=== PATIENT | male | born 1950 | race Caucasian/White ===

== ENCOUNTER → 2016-10-12 | Outpatient (CLI) | payer OTHER, MEDICARE ==
[~2016-10-12] MED LIST: AMBIEN5 M1 PO; GABAPENTIN100 MG; LAMICTAL200 M1 PO; LEVEMIR100 U/M1 SQ; LORTAB 5/3251 TAB PO; METFORMIN HYD1000 M1 PO; NOVOLOG 100U100 U/ML SQ; PRILOSEC 20MG20 MG PO; SYNTHROID0.075 MG PO
== END ==
LOC: LAB 16:41
DX: E72.29 Other disorders of urea cycle metabolism (principal)

== ENCOUNTER → 2016-12-15 | Outpatient (CLI) | payer OTHER, MEDICARE | LOC: LAB 16:01 | DX: E11.9 Type 2 diabetes mellitus without complications (principal); K74.69 Other cirrhosis of liver ==

== ENCOUNTER 2017-01-05 19:21 | Emergency (ER) | payer OTHER, MEDICARE ==
[2017-01-05] MEDS ORDERED: LEVEMIR100 U/M1 SQ (19:39)
[2017-01-05] MEDS ORDERED: NOVOLOG 100U100 U/ML SQ (19:39)
[2017-01-05] MEDS ORDERED: METFORMIN HYD1000 M1 PO (19:40)
[2017-01-05] MEDS ORDERED: LAMICTAL200 M1 PO (19:41)
[2017-01-05] MEDS ORDERED: AMBIEN5 M1 PO (19:41)
[2017-01-05] MEDS ORDERED: GABAPENTIN100 MG (19:43)
[2017-01-05] MEDS ORDERED: SYNTHROID0.075 MG PO (19:43)
[2017-01-05] MEDS ORDERED: LORTAB 5/3251 TAB PO (19:43)
[2017-01-05] MEDS ORDERED: PRILOSEC 20MG20 MG PO (19:44)
== END 2017-01-05 21:21 | disposition home or self-care (01) ==
LOC: ED 19:21
DX: E11.65 Type 2 diabetes mellitus with hyperglycemia (principal); Z79.4 Long term (current) use of insulin
CPT/HCPCS: J7030

== ENCOUNTER → 2017-03-09 | Outpatient (CLI) | payer OTHER, MEDICARE ==
[2017-01-05 21:19] VITALS: BP 119/74
== END ==
LOC: LAB 14:48
DX: R10.32 Left lower quadrant pain (principal)

== ENCOUNTER → 2017-03-10 | Outpatient (CLI) | payer MEDICARE ==
[2017-01-05 21:19] VITALS: BP 119/74
== END ==
LOC: RAD 07:00
DX: R19.04 Left lower quadrant abdominal swelling, mass and lump (principal); R10.32 Left lower quadrant pain

== ENCOUNTER → 2017-05-16 | Outpatient (CLI) | payer MEDICARE ==
[2017-01-05 21:19] VITALS: BP 119/74
== END ==
LOC: LAB 14:58
DX: K74.60 Unspecified cirrhosis of liver (principal)

== ENCOUNTER → 2017-08-01 | Outpatient (CLI) | payer OTHER ==
[2017-07-06 19:24] VITALS: BP 147/74
[~2017-08-01] MED LIST changes: +LACTULOSE SYRUP1 ML PO; -SYNTHROID0.075 MG PO; +SYNTHROID0.15 MG PO; +WELLBUTRIN SR150 M3 PO
[2017-08-01 10:56] LABS: BASO # 0.1 (0.02-0.10); EOS # 0.2 (0.04-0.40); HEMATOCRIT 41.7 % (42.0-52.0); HEMOGLOBIN 14.1 g/dL (13.5-18.0); LYMPH# 1.7 (1.50-4.00); MEAN CELL VOLUME 90 fl (78-100); MEAN CORPUSCULAR HEMOGLOBIN 31 pg (27-31); MEAN CORPUSCULAR HGB CONC 34 g/dL (33-37); MEAN PLATELET VOLUME 10.4 fl (7.4-10.4); MONO # 0.6 (0.20-0.80); PLATELET COUNT 98 K/mm3 (130-400); RED BLOOD COUNT 4.62 M/mm3 (4.20-5.60); RED CELL DISTRIBUTION WIDTH 13.9 % (11.5-14.5); WHITE BLOOD COUNT 7.5 K/mm3 (4.8-10.8)
[2017-08-01 11:19] LABS: ALBUMIN 3.6 g/dL (3.5-5.0); BUN/CREATININE RATIO 16.9 (6.0-26.0); CALCIUM 9.5 mg/dL (8.4-10.2); POTASSIUM 4.2 mmol/L (3.6-5.0); TOTAL PROTEIN 7.4 g/dL (6.3-8.2)
[2017-08-01 12:00] LABS: ERYTHROCYTE SEDIMENTATION RATE 23 mm/hr (0-20)
[2017-08-01 16:40] LABS: URINE APPEARANCE CLEAR; URINE BILIRUBIN NEGATIVE (NEGATIVE); URINE BLOOD NEGATIVE (NEGATIVE); URINE COLOR YELLOW; URINE GLUCOSE 50 mg/dL mg/dL (NEGATIVE); URINE KETONE NEGATIVE (NEGATIVE); URINE LEUKOCYTE ESTERASE NEGATIVE (NEGATIVE); URINE MUCUS PRESENT (NOT PRESENT); URINE NITRATE NEGATIVE (NEGATIVE); URINE PROTEIN(semi-quant) TRACE mg/dL (NEGATIVE); URINE UROBILINOGEN NORMAL (NORMAL); URINE WBC 0-1 /hpf (0-3)
[2017-08-01 23:13] LABS: TESTOSTERONE 369 ng/dL (221-716)
== END ==
LOC: RAD 10:33
PROVIDERS: Internal Medicine
DX: M19.042 Primary osteoarthritis, left hand (principal); R20.2 Paresthesia of skin; E11.9 Type 2 diabetes mellitus without complications; N52.9 Male erectile dysfunction, unspecified; K74.69 Other cirrhosis of liver; E03.9 Hypothyroidism, unspecified; G93.40 Encephalopathy, unspecified

== ENCOUNTER → 2017-09-28 | Outpatient (CLI) | payer OTHER ==
[2017-07-06 19:24] VITALS: BP 147/74
== END ==
LOC: LAB 09:52 → RAD 14:16
DX: Z01.812 Encounter for preprocedural laboratory examination (principal); Z86.14 Personal history of Methicillin resistant Staphylococcus aureus infection

== ENCOUNTER → 2017-11-15 | Outpatient (CLI) | payer MEDICARE ==
[2017-07-06 19:24] VITALS: BP 147/74
[2017-11-15 15:35] LABS: EOS # 0.1 (0.04-0.40); EOS % 1.7 % (0.0-4.0); HEMATOCRIT 37.5 % (42.0-52.0); HEMOGLOBIN 12.3 g/dL (13.5-18.0); LYMPH# 1.3 (1.50-4.00); MEAN CELL VOLUME 92 fl (78-100); MEAN CORPUSCULAR HEMOGLOBIN 30 pg (27-31); MEAN CORPUSCULAR HGB CONC 33 g/dL (33-37); MEAN PLATELET VOLUME 10.7 fl (7.4-10.4); MONO # 0.4 (0.20-0.80); NEU # 3.5 (1.40-6.50); PLATELET COUNT 86 K/mm3 (130-400); RED BLOOD COUNT 4.07 M/mm3 (4.20-5.60); RED CELL DISTRIBUTION WIDTH 14.5 % (11.5-14.5); WHITE BLOOD COUNT 5.3 K/mm3 (4.8-10.8)
[2017-11-15 15:44] LABS: ALBUMIN 3.5 g/dL (3.5-5.0); BUN/CREATININE RATIO 7.5 (6.0-26.0); CALCIUM 9.1 mg/dL (8.4-10.2); POTASSIUM 4.5 mmol/L (3.6-5.0); TOTAL BILIRUBIN 0.4 mg/dL (0.2-1.3); TOTAL PROTEIN 7.1 g/dL (6.3-8.2)
[2017-11-15 15:46] LABS: PROTHROMBIN TIME 11.2 SECONDS (9.0-12.0)
== END ==
LOC: LAB 14:52
PROVIDERS: Physician Assistant
DX: K74.60 Unspecified cirrhosis of liver (principal); K75.81 Nonalcoholic steatohepatitis (NASH); R74.8 Abnormal levels of other serum enzymes

== ENCOUNTER → 2017-12-05 | Outpatient (CLI) | payer OTHER ==
[2017-07-06 19:24] VITALS: BP 147/74
== END ==
LOC: LAB 15:06
DX: E11.9 Type 2 diabetes mellitus without complications (principal); Z88.5 Allergy status to narcotic agent

== ENCOUNTER → 2017-12-06 | Outpatient (CLI) | payer MEDICARE ==
[2017-07-06 19:24] VITALS: BP 147/74
== END ==
LOC: RAD 08:14
DX: K76.89 Other specified diseases of liver (principal); R74.8 Abnormal levels of other serum enzymes; Z90.49 Acquired absence of other specified parts of digestive tract

== ENCOUNTER 2017-12-20 14:00 | Outpatient (RCR) | payer OTHER ==
[2017-07-06 19:24] VITALS: BP 147/74
[2018-01-21] MEDS ORDERED: NOVOLOG 100U100 U/ML SQ (20:30)
[2018-01-21] MEDS ORDERED: LEVSIN-SL0.125 MG SL (21:22)
[2018-01-23] MEDS ORDERED: LATUDA40 MG PO (17:13)
[2018-01-23] MEDS ORDERED: FLAGYL500 M1 PO (19:20)
[2018-01-23] MEDS ORDERED: PREDNISONE20 M1 PO (19:20)
[2018-01-23] MEDS ORDERED: CIPRO500 M1 PO (19:20)
[2018-01-23] MEDS ORDERED: NORCO 325 MG-51 TA1 PO (21:53)
== END 2018-02-22 | disposition home or self-care (01) ==
LOC: OT
DX: Z47.89 Encounter for other orthopedic aftercare (principal)

== ENCOUNTER 2018-01-21 17:52 | Emergency (ER) | payer MEDICARE, OTHER ==
[~2018-01-21] VITALS: Ht 167.6 cm; Wt 96.8 kg
[2018-01-21 18:27] LABS: EOS # 0.1 (0.04-0.40); EOS % 0.9 % (0.0-4.0); HEMATOCRIT 39.4 % (42.0-52.0); LYMPH# 1.2 (1.50-4.00); MEAN CELL VOLUME 92 fl (78-100); MEAN CORPUSCULAR HEMOGLOBIN 30 pg (27-31); MEAN CORPUSCULAR HGB CONC 33 g/dL (33-37); MEAN PLATELET VOLUME 10.7 fl (7.4-10.4); MONO # 0.6 (0.20-0.80); NEU # 5.6 (1.40-6.50); PLATELET COUNT 88 K/mm3 (130-400); RED BLOOD COUNT 4.28 M/mm3 (4.20-5.60); RED CELL DISTRIBUTION WIDTH 13.7 % (11.5-14.5); WHITE BLOOD COUNT 7.6 K/mm3 (4.8-10.8)
[2018-01-21 18:39] LABS: ALBUMIN 3.5 g/dL (3.5-5.0); BUN/CREATININE RATIO 11.9 (6.0-26.0); TOTAL BILIRUBIN 0.7 mg/dL (0.2-1.3); TOTAL PROTEIN 7.2 g/dL (6.3-8.2)
[2018-01-21 19:54] LABS: URINE APPEARANCE CLEAR; URINE BILIRUBIN NEGATIVE (NEGATIVE); URINE BLOOD NEGATIVE (NEGATIVE); URINE COLOR YELLOW; URINE KETONE NEGATIVE (NEGATIVE); URINE LEUKOCYTE ESTERASE NEGATIVE (NEGATIVE); URINE NITRATE NEGATIVE (NEGATIVE); URINE PROTEIN(semi-quant) NEGATIVE (NEGATIVE); URINE UROBILINOGEN NORMAL (NORMAL); URINE WBC 0-1 /hpf (0-3)
[2018-01-21] MEDS ORDERED: NOVOLOG 100U100 U/ML SQ (20:30)
[2018-01-21] MEDS ORDERED: LEVSIN-SL0.125 MG SL (21:22)
[2018-01-21 21:34] LABS: ERYTHROCYTE SEDIMENTATION RATE 15 mm/hr (0-20)
[2018-01-21 21:42] VITALS: BP 123/75
== END 2018-01-21 21:42 | disposition home or self-care (01) ==
LOC: ED 17:52
PROVIDERS: Nurse Practitioner
DX: K51.00 Ulcerative (chronic) pancolitis without complications (principal); R33.9 Retention of urine, unspecified; K74.60 Unspecified cirrhosis of liver; R16.1 Splenomegaly, not elsewhere classified
CPT/HCPCS: J1200; J1815; J1885; J2405; J2930; J7030; Q9967

== ENCOUNTER 2018-01-23 16:51 | Emergency (ER) | payer MEDICARE, OTHER ==
[~2018-01-23] VITALS: Ht 167.6 cm; Wt 96.8 kg
[~2018-01-23 16:51] MED LIST changes: +LEVSIN-SL0.125 MG SL
[2018-01-23] MEDS ORDERED: LATUDA40 MG PO (17:13)
[2018-01-23 17:30] LABS: BASO # 0.1 (0.02-0.10); EOS # 0.1 (0.04-0.40); EOS % 1.4 % (0.0-4.0); HEMATOCRIT 38.2 % (42.0-52.0); HEMOGLOBIN 12.8 g/dL (13.5-18.0); LYMPH# 1.5 (1.50-4.00); MEAN CELL VOLUME 93 fl (78-100); MEAN CORPUSCULAR HEMOGLOBIN 31 pg (27-31); MEAN CORPUSCULAR HGB CONC 34 g/dL (33-37); MEAN PLATELET VOLUME 10.5 fl (7.4-10.4); MONO # 0.6 (0.20-0.80); NEU # 5.5 (1.40-6.50); PLATELET COUNT 75 K/mm3 (130-400); RED BLOOD COUNT 4.13 M/mm3 (4.20-5.60); RED CELL DISTRIBUTION WIDTH 13.4 % (11.5-14.5); WHITE BLOOD COUNT 7.8 K/mm3 (4.8-10.8)
[2018-01-23 17:39] LABS: ALBUMIN 3.5 g/dL (3.5-5.0); BUN/CREATININE RATIO 15.3 (6.0-26.0); CALCIUM 8.8 mg/dL (8.4-10.2); POTASSIUM 3.9 mmol/L (3.6-5.0); TOTAL BILIRUBIN 0.3 mg/dL (0.2-1.3); TOTAL PROTEIN 7.2 g/dL (6.3-8.2)
[2018-01-23] MEDS ORDERED: FLAGYL500 M1 PO (19:20)
[2018-01-23] MEDS ORDERED: PREDNISONE20 M1 PO (19:20)
[2018-01-23] MEDS ORDERED: CIPRO500 M1 PO (19:20)
[2018-01-23] MEDS ORDERED: NORCO 325 MG-51 TA1 PO (21:53)
[2018-01-23 22:47] VITALS: BP 119/77
== END 2018-01-23 22:47 | disposition home or self-care (01) ==
LOC: ED 16:51
PROVIDERS: Nurse Practitioner Primary Care
DX: K52.9 Noninfective gastroenteritis and colitis, unspecified (principal); E11.9 Type 2 diabetes mellitus without complications; Z79.4 Long term (current) use of insulin; I10 Essential (primary) hypertension; K21.9 Gastro-esophageal reflux disease without esophagitis; Z90.49 Acquired absence of other specified parts of digestive tract; K74.60 Unspecified cirrhosis of liver; K72.90 Hepatic failure, unspecified without coma; F32.9 Major depressive disorder, single episode, unspecified; E07.9 Disorder of thyroid, unspecified; Z91.041 Radiographic dye allergy status; R16.1 Splenomegaly, not elsewhere classified
CPT/HCPCS: J0744; J1200; J1885; J2270; J2405; J2930; J3490; J7030; Q9967

== ENCOUNTER → 2018-07-10 | Outpatient (CLI) | payer OTHER ==
[~2018-07-10] MED LIST changes: +CIPRO500 M1 PO; +FLAGYL500 M1 PO; +LATUDA40 MG PO; +NORCO 325 MG-51 TA1 PO; +PREDNISONE20 M1 PO
[2018-07-10 17:22] LABS: EOS # 0.1 (0.04-0.40); EOS % 1.7 % (0.0-4.0); HEMATOCRIT 39.8 % (42.0-52.0); HEMOGLOBIN 13.9 g/dL (13.5-18.0); LYMPH# 1.3 (1.50-4.00); MEAN CELL VOLUME 89 fl (78-100); MEAN CORPUSCULAR HEMOGLOBIN 31 pg (27-31); MEAN CORPUSCULAR HGB CONC 35 g/dL (33-37); MEAN PLATELET VOLUME 11.3 fl (7.4-10.4); MONO # 0.5 (0.20-0.80); NEU # 3.6 (1.40-6.50); PLATELET COUNT 80 K/mm3 (130-400); RED BLOOD COUNT 4.46 M/mm3 (4.20-5.60); RED CELL DISTRIBUTION WIDTH 13.1 % (11.5-14.5); WHITE BLOOD COUNT 5.4 K/mm3 (4.8-10.8)
[2018-07-10 19:27] LABS: ERYTHROCYTE SEDIMENTATION RATE 10 mm/hr (0-20)
[2018-07-10 19:55] LABS: ALBUMIN 3.5 g/dL (3.5-5.0); CALCIUM 8.7 mg/dL (8.4-10.2); POTASSIUM 3.9 mmol/L (3.6-5.0); TOTAL BILIRUBIN 0.6 mg/dL (0.2-1.3); TOTAL PROTEIN 6.8 g/dL (6.3-8.2)
[2018-07-11 15:58] LABS: TESTOSTERONE 363 ng/dL (221-716)
== END ==
LOC: LAB 15:47
PROVIDERS: Internal Medicine
DX: E11.9 Type 2 diabetes mellitus without complications (principal); E03.9 Hypothyroidism, unspecified; E78.5 Hyperlipidemia, unspecified; G93.40 Encephalopathy, unspecified; K74.60 Unspecified cirrhosis of liver

== ENCOUNTER → 2018-10-24 | Outpatient (CLI) | payer OTHER | LOC: LAB 11:14 | DX: E11.9 Type 2 diabetes mellitus without complications (principal) ==

== ENCOUNTER → 2018-11-06 | Outpatient (CLI) | payer SELFPAY | LOC: RAD 16:24 | DX: M47.816 Spondylosis without myelopathy or radiculopathy, lumbar region (principal); M16.0 Bilateral primary osteoarthritis of hip; M53.3 Sacrococcygeal disorders, not elsewhere classified ==

== ENCOUNTER → 2018-12-14 | Outpatient (CLI) | payer OTHER ==
[2018-12-14 13:27] LABS: ALBUMIN 3.5 g/dL (3.5-5.0); CALCIUM 9.1 mg/dL (8.4-10.2); POTASSIUM 4.5 mmol/L (3.6-5.0); TOTAL BILIRUBIN 1.1 mg/dL (0.2-1.3)
[2018-12-14 13:53] LABS: HEMATOCRIT 39.1 % (42.0-52.0); HEMOGLOBIN 12.8 g/dL (13.5-18.0); MEAN CELL VOLUME 91 fl (78-100); MEAN CORPUSCULAR HEMOGLOBIN 30 pg (27-31); MEAN CORPUSCULAR HGB CONC 33 g/dL (33-37); MEAN PLATELET VOLUME 10.3 fl (7.4-10.4); PLATELET COUNT 75 K/mm3 (130-400); RED BLOOD COUNT 4.28 M/mm3 (4.20-5.60); RED CELL DISTRIBUTION WIDTH 13.1 % (11.5-14.5); WHITE BLOOD COUNT 7.6 K/mm3 (4.8-10.8)
[2018-12-14 14:25] LABS: BAND 1 % (0-10); LYMPHOCYTE 8 % (20-51); NEUTROPHILS 89 % (42-75)
[2018-12-14 14:26] LABS: MONOCYTE 2 % (3-10)
[2018-12-14 15:18] LABS: ERYTHROCYTE SEDIMENTATION RATE 20 mm/hr (0-20)
== END ==
LOC: LAB 12:53
PROVIDERS: Internal Medicine
DX: E03.9 Hypothyroidism, unspecified (principal); E11.9 Type 2 diabetes mellitus without complications

== ENCOUNTER 2018-12-22 13:30 | Outpatient (RCR) | payer OTHER | END 2018-12-22 14:00 | LOC: PT 13:30 | DX: M46.1 Sacroiliitis, not elsewhere classified (principal); M76.32 Iliotibial band syndrome, left leg ==

== ENCOUNTER → 2019-03-27 | Outpatient (CLI) | payer OTHER ==
[2019-03-07 10:16] VITALS: BP 109/62
[~2019-03-27] MED LIST changes: +ACETAMINOPHEN-H1 TA1 PO; +DESYREL DIVIDO150 M1 PO; +HYDROXYZINE HCL25 M1 PO; +LATUDA120 MG PO; +NEURONTIN300 M1 PO
[2019-03-27 15:26] LABS: ALBUMIN 3.1 g/dL (3.4-4.8); CALCIUM 8.9 mg/dL (8.3-10.5); POTASSIUM 3.7 mmol/L (3.5-5.1); TOTAL BILIRUBIN 0.9 mg/dL (0.2-1.2); TOTAL PROTEIN 5.9 g/dL (6.2-8.1)
[2019-03-27 16:02] LABS: EOS # 0.1 (0.04-0.40); EOS % 2.7 % (0.0-4.0); HEMATOCRIT 36.3 % (42.0-52.0); HEMOGLOBIN 11.9 g/dL (13.5-18.0); LYMPH# 1.1 (1.50-4.00); MEAN CELL VOLUME 93 fl (78-100); MEAN CORPUSCULAR HEMOGLOBIN 31 pg (27-31); MEAN CORPUSCULAR HGB CONC 33 g/dL (33-37); MEAN PLATELET VOLUME 10.7 fl (7.4-10.4); MONO # 0.5 (0.20-0.80); PLATELET COUNT 67 K/mm3 (130-400); RED BLOOD COUNT 3.89 M/mm3 (4.20-5.60); RED CELL DISTRIBUTION WIDTH 13.6 % (11.5-14.5); WHITE BLOOD COUNT 4.8 K/mm3 (4.8-10.8)
[2019-03-27 16:07] LABS: PROTHROMBIN TIME 11.3 SECONDS (9.0-12.0)
== END ==
LOC: LAB 14:40
PROVIDERS: Physician Assistant
DX: K74.60 Unspecified cirrhosis of liver (principal); R94.5 Abnormal results of liver function studies

== ENCOUNTER 2019-04-06 00:27 | Emergency (ER) | payer OTHER ==
[~2019-04-06] VITALS: Ht 167.6 cm; Wt 96.4 kg
[2019-04-06] MEDS ORDERED: LACTULOSE SYRUP1 ML PO (00:44)
[2019-04-06 01:21] LABS: EOS # 0.1 (0.04-0.40); EOS % 1.7 % (0.0-4.0); HEMATOCRIT 37.2 % (42.0-52.0); HEMOGLOBIN 12.4 g/dL (13.5-18.0); LYMPH# 1.1 (1.50-4.00); MEAN CELL VOLUME 92 fl (78-100); MEAN CORPUSCULAR HEMOGLOBIN 31 pg (27-31); MEAN CORPUSCULAR HGB CONC 33 g/dL (33-37); MONO # 0.4 (0.20-0.80); PLATELET COUNT 106 K/mm3 (130-400); RED BLOOD COUNT 4.03 M/mm3 (4.20-5.60); RED CELL DISTRIBUTION WIDTH 13.6 % (11.5-14.5); WHITE BLOOD COUNT 4.6 K/mm3 (4.8-10.8)
[2019-04-06 01:32] LABS: MEAN PLATELET VOLUME 12.1 fl (7.4-10.4)
[2019-04-06 01:43] LABS: POTASSIUM 3.7 mmol/L (3.5-5.1); SODIUM 139 mmol/L (136-145)
[2019-04-06 01:44] LABS: CALCIUM 8.7 mg/dL (8.3-10.5)
[2019-04-06 01:45] LABS: GLUCOSE 329 mg/dL (75-110); TOTAL PROTEIN 6.4 g/dL (6.2-8.1)
[2019-04-06 01:46] LABS: CARBON DIOXIDE 22 mmol/L (23-31)
[2019-04-06 01:47] LABS: TOTAL BILIRUBIN 0.5 mg/dL (0.2-1.2)
[2019-04-06 01:50] LABS: AST-SGOT 26 U/L (5-34)
[2019-04-06 01:51] LABS: ALT/SGPT 25 U/L (0-55)
[2019-04-06 02:00] LABS: TROPONIN-I < 0.03 ng/mL (<0.030)
[2019-04-06 02:24] LABS: PH-URINE 6.5 (5.0 - 8.0); URINE APPEARANCE CLEAR; URINE COLOR YELLOW; URINE PROTEIN(semi-quant) TRACE mg/dL (NEGATIVE)
[2019-04-06 02:25] LABS: URINE BILIRUBIN NEGATIVE (NEGATIVE); URINE BLOOD NEGATIVE (NEGATIVE); URINE KETONE NEGATIVE (NEGATIVE); URINE LEUKOCYTE ESTERASE NEGATIVE (NEGATIVE); URINE NITRATE NEGATIVE (NEGATIVE); URINE UROBILINOGEN NORMAL (NORMAL); URINE WBC 0-1 /hpf (0-3)
[2019-04-06] MEDS ORDERED: LOPRESSOR 225 MG/TAB PO (02:37)
[2019-04-06] MEDS ORDERED: XARELTO20 MG PO (02:37)
[2019-04-06 02:55] VITALS: BP 122/69
== END 2019-04-06 02:55 | disposition home or self-care (01) ==
LOC: ED 00:27
PROVIDERS: Nurse Practitioner Family
DX: I48.0 Paroxysmal atrial fibrillation (principal); F41.9 Anxiety disorder, unspecified; I10 Essential (primary) hypertension; F31.9 Bipolar disorder, unspecified; E03.9 Hypothyroidism, unspecified; E11.40 Type 2 diabetes mellitus with diabetic neuropathy, unspecified; G47.33 Obstructive sleep apnea (adult) (pediatric); K74.60 Unspecified cirrhosis of liver; Z90.49 Acquired absence of other specified parts of digestive tract; Z79.4 Long term (current) use of insulin
CPT/HCPCS: J2405; J7030

== ENCOUNTER → 2019-04-26 | Outpatient (CLI) | payer OTHER ==
[2019-04-06 02:55] VITALS: BP 122/69
[~2019-04-26] MED LIST changes: +LOPRESSOR 225 MG/TAB PO; +XARELTO20 MG PO
[2019-04-26 16:43] LABS: POTASSIUM 3.8 mmol/L (3.5-5.1)
[2019-04-26 16:44] LABS: CALCIUM 8.5 mg/dL (8.3-10.5)
== END ==
LOC: RAD 04-25 16:00 → VAS 15:21 → LAB 15:21
PROVIDERS: Internal Medicine
DX: I48.91 Unspecified atrial fibrillation (principal); E11.9 Type 2 diabetes mellitus without complications; M54.5 Low back pain

== ENCOUNTER → 2019-05-04 | Outpatient (CLI) | payer OTHER ==
[2019-04-06 02:55] VITALS: BP 122/69
== END ==
LOC: CARDLAB 04-20 13:36 → CARDREHAB 09:18 → CARDLAB 15:08
DX: E11.9 Type 2 diabetes mellitus without complications (principal); I48.91 Unspecified atrial fibrillation
CPT/HCPCS: A9500

== ENCOUNTER 2019-05-28 10:28 | Emergency (ER) | payer MEDICARE ==
[2019-05-28] MEDS ORDERED: LEVOTHYROXINE112 MCG PO (10:37)
[2019-05-28] MEDS ORDERED: NORCO 10-325 T1 EACH PO (12:07)
[2019-05-28 12:40] VITALS: BP 113/64
--- NOTE | 2019-05-29 18:16 | NUR ---
Discussed w/ pt HH scores over the phone via [facility] website, and he states he has no preference and knows nothing about HH and chooses the [facility] w/ the highest score. Dr Patino is notified of Mirella Acosta APRN requesting HH services through the ED and is in agreement. HH F2F order is signed and faxed to [facility] per pt telephone agreement.
== END 2019-05-28 12:13 | disposition home or self-care (01) ==
LOC: ED 10:28
DX: G89.29 Other chronic pain (principal); M54.9 Dorsalgia, unspecified; E11.9 Type 2 diabetes mellitus without complications; I25.10 Atherosclerotic heart disease of native coronary artery without angina pectoris; I10 Essential (primary) hypertension; K74.60 Unspecified cirrhosis of liver; F31.9 Bipolar disorder, unspecified; K21.9 Gastro-esophageal reflux disease without esophagitis; Z90.49 Acquired absence of other specified parts of digestive tract; Z21 Asymptomatic human immunodeficiency virus [HIV] infection status; Z79.4 Long term (current) use of insulin; Z98.890 Other specified postprocedural states; Z79.01 Long term (current) use of anticoagulants
CPT/HCPCS: J1885

== ENCOUNTER → 2019-06-09 | Outpatient (CLI) | payer OTHER ==
[2019-05-28 12:40] VITALS: BP 113/64
[~2019-06-09] MED LIST changes: +LEVOTHYROXINE112 MCG PO; +NORCO 10-325 T1 EACH PO
== END ==
LOC: RAD 11:37
DX: M16.0 Bilateral primary osteoarthritis of hip (principal); W19.XXXA Unspecified fall, initial encounter

== ENCOUNTER 2019-07-07 22:12 | Emergency (ER) | payer OTHER ==
[2019-07-07] MEDS ORDERED: NORCO 10-325 T1 EACH PO (23:18)
[2019-07-08 00:06] VITALS: BP 136/68
== END 2019-07-08 00:20 | disposition home or self-care (01) ==
LOC: ED 22:12
DX: G89.29 Other chronic pain (principal); M54.9 Dorsalgia, unspecified; I48.91 Unspecified atrial fibrillation; E10.9 Type 1 diabetes mellitus without complications; F31.9 Bipolar disorder, unspecified; G47.30 Sleep apnea, unspecified; G62.9 Polyneuropathy, unspecified; Z90.49 Acquired absence of other specified parts of digestive tract; Z98.890 Other specified postprocedural states; Z79.01 Long term (current) use of anticoagulants; W00.0XXA Fall on same level due to ice and snow, initial encounter; Y92.009 Unspecified place in unspecified non-institutional (private) residence as the place of occurrence of the external cause
CPT/HCPCS: J2270

== ENCOUNTER 2019-07-13 13:13 | Observation (INO) | payer OTHER ==
[~2019-07-13] VITALS: Ht 152.4 cm; Wt 97.9 kg
[2019-07-13] MEDS ORDERED: NOVOLOG 100U100 U/ML SQ (13:45)
[2019-07-13] MEDS ORDERED: BACLOFEN5 MG PO (13:46)
[2019-07-13] MEDS ORDERED: CHILDREN'S ASPI81 M1 PO (13:47)
[2019-07-13] MEDS ORDERED: HYDROXYZINE HCL25 M1 PO (13:48)
[2019-07-13] MEDS ORDERED: BENADRYL (13:48)
[2019-07-13 13:56] LABS: EOS # 0.1 (0.04-0.40); EOS % 1.9 % (0.0-4.0); HEMATOCRIT 34.2 % (42.0-52.0); HEMOGLOBIN 10.9 g/dL (13.5-18.0); MEAN CELL VOLUME 95 fl (78-100); MEAN CORPUSCULAR HEMOGLOBIN 30 pg (27-31); MEAN CORPUSCULAR HGB CONC 32 g/dL (33-37); MEAN PLATELET VOLUME 11.1 fl (7.4-10.4); MONO # 0.4 (0.20-0.80); NEU # 2.8 (1.40-6.50); PLATELET COUNT 66 K/mm3 (130-400); RED BLOOD COUNT 3.61 M/mm3 (4.20-5.60); RED CELL DISTRIBUTION WIDTH 13.5 % (11.5-14.5); WHITE BLOOD COUNT 4.3 K/mm3 (4.8-10.8)
[2019-07-13 14:08] LABS: ALBUMIN 3.3 g/dL (3.4-4.8)
[2019-07-13 14:09] LABS: SODIUM 139 mmol/L (136-145)
[2019-07-13 14:10] LABS: CALCIUM 9.1 mg/dL (8.3-10.5)
[2019-07-13 14:11] LABS: GLUCOSE 229 mg/dL (75-110); TOTAL PROTEIN 6.4 g/dL (6.2-8.1)
[2019-07-13 14:12] LABS: CARBON DIOXIDE 24 mmol/L (23-31)
[2019-07-13 14:13] LABS: TOTAL BILIRUBIN 0.5 mg/dL (0.2-1.2)
[2019-07-13 14:14] LABS: ALCOHOL IN-HOUSE < 10 mg/dL (<10)
[2019-07-13 14:16] LABS: AST-SGOT 30 U/L (5-34)
[2019-07-13 14:18] LABS: ALT/SGPT 24 U/L (0-55)
[2019-07-13 14:23] LABS: TROPONIN-I < 0.03 ng/mL (<0.030)
[2019-07-13 16:13] LABS: URINE APPEARANCE CLEAR; URINE COLOR YELLOW; URINE PROTEIN(semi-quant) TRACE mg/dL (NEGATIVE)
[2019-07-13 16:14] LABS: URINE BILIRUBIN NEGATIVE (NEGATIVE); URINE BLOOD NEGATIVE (NEGATIVE); URINE KETONE NEGATIVE (NEGATIVE); URINE LEUKOCYTE ESTERASE NEGATIVE (NEGATIVE); URINE NITRATE NEGATIVE (NEGATIVE); URINE UROBILINOGEN NORMAL (NORMAL); URINE WBC 0-1 /hpf (0-3)
[2019-07-13 22:40] VITALS: BP 123/64
[2019-07-13 23:09] VITALS: BP 123/64
[2019-07-14 02:47] VITALS: BP 96/57
[2019-07-14 06:17] VITALS: BP 93/57
[2019-07-14 08:15] VITALS: BP 119/52
[2019-07-14 11:00] VITALS: BP 103/74
[2019-07-14 15:12] VITALS: BP 90/52
[2019-07-14] MEDS ORDERED: LACTULOSE10 GM/153 PO (18:35)
[2019-07-14 18:53] VITALS: BP 99/62
== END 2019-07-14 20:10 | disposition home health service (06) ==
LOC: ED 13:13 → MED/SURG 22:46
PROVIDERS: Nurse Practitioner Primary Care; ADMIT Family Medicine
DX: R41.0 Disorientation, unspecified (principal); F31.9 Bipolar disorder, unspecified; I48.91 Unspecified atrial fibrillation; K74.60 Unspecified cirrhosis of liver; G89.29 Other chronic pain; M54.5 Low back pain; E11.9 Type 2 diabetes mellitus without complications; Z79.4 Long term (current) use of insulin; E03.9 Hypothyroidism, unspecified; K21.9 Gastro-esophageal reflux disease without esophagitis; Z79.899 Other long term (current) drug therapy; Z90.49 Acquired absence of other specified parts of digestive tract; Z79.82 Long term (current) use of aspirin
CPT/HCPCS: G0378; J1815

== ENCOUNTER 2019-10-13 08:53 | Emergency (ER) | payer OTHER ==
[~2019-10-13 08:53] MED LIST changes: +BACLOFEN5 MG PO; +BENADRYL; +CHILDREN'S ASPI81 M1 PO; +LACTULOSE10 GM/153 PO
[2019-10-13 09:51] LABS: EOS # 0.1 (0.04-0.40); EOS % 1.9 % (0.0-4.0); HEMOGLOBIN 11.5 g/dL (13.5-18.0); LYMPH# 1.3 (1.50-4.00); MEAN CELL VOLUME 86 fl (78-100); MEAN CORPUSCULAR HEMOGLOBIN 28 pg (27-31); MEAN CORPUSCULAR HGB CONC 32 g/dL (33-37); MEAN PLATELET VOLUME 11.5 fl (7.4-10.4); MONO # 0.5 (0.20-0.80); NEU # 3.4 (1.40-6.50); PLATELET COUNT 102 K/mm3 (130-400); RED BLOOD COUNT 4.17 M/mm3 (4.20-5.60); RED CELL DISTRIBUTION WIDTH 14.5 % (11.5-14.5); WHITE BLOOD COUNT 5.4 K/mm3 (4.8-10.8)
[2019-10-13 09:58] LABS: POTASSIUM 4.4 mmol/L (3.5-5.1)
[2019-10-13 09:59] LABS: CALCIUM 8.5 mg/dL (8.3-10.5)
[2019-10-13] MEDS ORDERED: TRAMADOL 50 MG TAB PO (14:24)
[2019-10-13 14:45] VITALS: BP 145/60
== END 2019-10-13 15:02 | disposition home or self-care (01) ==
LOC: ED 08:53
PROVIDERS: Family Medicine
DX: S00.83XA Contusion of other part of head, initial encounter (principal); S00.31XA Abrasion of nose, initial encounter; E11.65 Type 2 diabetes mellitus with hyperglycemia; I48.91 Unspecified atrial fibrillation; F31.9 Bipolar disorder, unspecified; G89.29 Other chronic pain; Z79.01 Long term (current) use of anticoagulants; Z79.4 Long term (current) use of insulin; Z79.82 Long term (current) use of aspirin; W18.30XA Fall on same level, unspecified, initial encounter; Y93.01 Activity, walking, marching and hiking; Y92.009 Unspecified place in unspecified non-institutional (private) residence as the place of occurrence of the external cause
CPT/HCPCS: J1815; J7030

== ENCOUNTER 2019-12-10 13:58 | Emergency (ER) | payer OTHER ==
[~2019-12-10 13:58] MED LIST changes: +TRAMADOL 50 MG TAB PO
[2019-12-10 14:07] VITALS: BP 126/64
[2019-12-10] MEDS ORDERED: METOPROLOL SUCC25 M1 PO (14:25)
[2019-12-10] MEDS ORDERED: OMEPRAZOLE40 MG PO (14:25)
[2019-12-10 14:29] LABS: BASO # 0.1 (0.02-0.10); EOS # 0.2 (0.04-0.40); HEMATOCRIT 36.7 % (42.0-52.0); HEMOGLOBIN 11.6 g/dL (13.5-18.0); LYMPH# 1.8 (1.50-4.00); MEAN CELL VOLUME 89 fl (78-100); MEAN CORPUSCULAR HEMOGLOBIN 28 pg (27-31); MEAN CORPUSCULAR HGB CONC 32 g/dL (33-37); MEAN PLATELET VOLUME 10.7 fl (7.4-10.4); MONO # 0.7 (0.20-0.80); NEU # 5.6 (1.40-6.50); PLATELET COUNT 95 K/mm3 (130-400); RED BLOOD COUNT 4.13 M/mm3 (4.20-5.60); RED CELL DISTRIBUTION WIDTH 15.2 % (11.5-14.5); WHITE BLOOD COUNT 8.3 K/mm3 (4.8-10.8)
[2019-12-10 14:48] LABS: ALBUMIN 2.9 g/dL (3.4-4.8); POTASSIUM 3.7 mmol/L (3.5-5.1)
[2019-12-10 14:49] LABS: CALCIUM 8.5 mg/dL (8.3-10.5)
[2019-12-10 14:51] LABS: TOTAL PROTEIN 6.3 g/dL (6.2-8.1)
[2019-12-10 14:52] LABS: TOTAL BILIRUBIN 1.3 mg/dL (0.2-1.2)
== END 2019-12-10 16:54 | disposition left against medical advice (07) ==
LOC: ED 13:58
PROVIDERS: Nurse Practitioner
DX: R07.89 Other chest pain (principal); G89.18 Other acute postprocedural pain; E11.9 Type 2 diabetes mellitus without complications; I48.91 Unspecified atrial fibrillation; Z79.4 Long term (current) use of insulin; Z79.82 Long term (current) use of aspirin; Z79.01 Long term (current) use of anticoagulants; Z90.89 Acquired absence of other organs; Z86.79 Personal history of other diseases of the circulatory system

== ENCOUNTER → 2020-01-28 | Outpatient (CLI) | payer OTHER ==
[~2020-01-28] MED LIST changes: +METOPROLOL SUCC25 M1 PO; +OMEPRAZOLE40 MG PO
== END ==
LOC: LAB 14:42
DX: J98.8 Other specified respiratory disorders (principal); E11.9 Type 2 diabetes mellitus without complications

== ENCOUNTER → 2020-05-26 | Outpatient (CLI) | payer OTHER ==
[2020-05-26 14:43] LABS: EOS % 0.2 % (0.0-4.0); HEMATOCRIT 38.1 % (42.0-52.0); HEMOGLOBIN 12.3 g/dL (13.5-18.0); LYMPH# 1.3 (1.50-4.00); MEAN CELL VOLUME 89 fl (78-100); MEAN CORPUSCULAR HEMOGLOBIN 29 pg (27-31); MEAN CORPUSCULAR HGB CONC 32 g/dL (33-37); MEAN PLATELET VOLUME 10.5 fl (7.4-10.4); MONO # 0.8 (0.20-0.80); NEU # 7.2 (1.40-6.50); PLATELET COUNT 108 K/mm3 (130-400); RED BLOOD COUNT 4.27 M/mm3 (4.20-5.60); RED CELL DISTRIBUTION WIDTH 14.3 % (11.5-14.5); WHITE BLOOD COUNT 9.4 K/mm3 (4.8-10.8)
[2020-05-26 14:45] LABS: ALBUMIN 3.2 g/dL (3.4-4.8); POTASSIUM 4.4 mmol/L (3.5-5.1)
[2020-05-26 14:46] LABS: CALCIUM 9.1 mg/dL (8.3-10.5)
[2020-05-26 14:48] LABS: TOTAL PROTEIN 6.9 g/dL (6.2-8.1)
[2020-05-26 14:50] LABS: TOTAL BILIRUBIN 0.7 mg/dL (0.2-1.2)
[2020-05-26 15:38] LABS: URINE APPEARANCE CLEAR; URINE BILIRUBIN NEGATIVE (NEGATIVE); URINE BLOOD NEGATIVE (NEGATIVE); URINE COLOR YELLOW; URINE KETONE NEGATIVE (NEGATIVE); URINE LEUKOCYTE ESTERASE NEGATIVE (NEGATIVE); URINE NITRATE NEGATIVE (NEGATIVE); URINE PROTEIN(semi-quant) NEGATIVE (NEGATIVE); URINE UROBILINOGEN NORMAL (NORMAL); URINE WBC 0-1 /hpf (0-3)
[2020-05-26 16:21] LABS: ERYTHROCYTE SEDIMENTATION RATE 9 mm/hr (0-20)
[2020-05-27 00:36] LABS: CREATININE OTHER SOURCE 66 mg/dL (())
== END ==
LOC: LAB 14:13
PROVIDERS: Internal Medicine
DX: Z12.5 Encounter for screening for malignant neoplasm of prostate (principal); E11.9 Type 2 diabetes mellitus without complications; K74.69 Other cirrhosis of liver; E72.29 Other disorders of urea cycle metabolism; E03.9 Hypothyroidism, unspecified

== ENCOUNTER → 2020-08-07 | Outpatient (CLI) | payer OTHER ==
[2020-06-30 14:15] VITALS: BP 101/67
[~2020-08-07] MED LIST changes: +BACLOFEN5 MG; +DESYREL 100MG100 MG PO; +PERCOCET 325 MG1 TA2 PO
== END ==
LOC: LAB 15:24
DX: E11.9 Type 2 diabetes mellitus without complications (principal); K74.69 Other cirrhosis of liver; E72.29 Other disorders of urea cycle metabolism; K90.9 Intestinal malabsorption, unspecified

== ENCOUNTER → 2020-08-15 | Outpatient (CLI) | payer MEDICARE ==
[2020-06-30 14:15] VITALS: BP 101/67
== END ==
LOC: RAD 08:38
DX: K74.60 Unspecified cirrhosis of liver (principal); K75.81 Nonalcoholic steatohepatitis (NASH); R18.8 Other ascites

== ENCOUNTER → 2020-08-18 | Outpatient (CLI) | payer MEDICARE ==
[2020-06-30 14:15] VITALS: BP 101/67
== END ==
LOC: LAB 12:42
DX: R05 Cough (principal); Z20.828 Contact with and (suspected) exposure to other viral communicable diseases

== ENCOUNTER → 2020-08-21 | Day surgery (SDC) | payer MEDICARE ==
[2020-06-30 14:15] VITALS: BP 101/67
== END ==
LOC: MSO 08:08
DX: Z12.11 Encounter for screening for malignant neoplasm of colon (principal); K57.30 Diverticulosis of large intestine without perforation or abscess without bleeding; I85.00 Esophageal varices without bleeding; K76.6 Portal hypertension; K22.2 Esophageal obstruction; K21.9 Gastro-esophageal reflux disease without esophagitis; K75.81 Nonalcoholic steatohepatitis (NASH); E78.00 Pure hypercholesterolemia, unspecified; F41.9 Anxiety disorder, unspecified; F32.9 Major depressive disorder, single episode, unspecified; E66.01 Morbid (severe) obesity due to excess calories; G93.40 Encephalopathy, unspecified; Z90.49 Acquired absence of other specified parts of digestive tract
CPT/HCPCS: 43235; G0121; 00813; J2704; J3010; J7030

== ENCOUNTER → 2020-11-10 | Outpatient (CLI) | payer MEDICARE ==
[2020-06-30 14:15] VITALS: BP 101/67
[2020-11-10 16:43] LABS: BASO # 0.1 (0.02-0.10); EOS # 0.4 (0.04-0.40); HEMATOCRIT 36.6 % (42.0-52.0); LYMPH# 1.2 (1.50-4.00); MEAN CELL VOLUME 94 fl (78-100); MEAN CORPUSCULAR HEMOGLOBIN 31 pg (27-31); MEAN CORPUSCULAR HGB CONC 33 g/dL (33-37); MEAN PLATELET VOLUME 9.5 fl (7.4-10.4); MONO # 0.6 (0.20-0.80); NEU # 4.9 (1.40-6.50); PLATELET COUNT 165 K/mm3 (130-400); RED CELL DISTRIBUTION WIDTH 14.6 % (11.5-14.5); WHITE BLOOD COUNT 7.1 K/mm3 (4.8-10.8)
[2020-11-10 16:58] LABS: ALBUMIN 2.7 g/dL (3.4-4.8); POTASSIUM 4.1 mmol/L (3.5-5.1); PROTHROMBIN TIME 12.4 SECONDS (9.0-12.0)
[2020-11-10 16:59] LABS: CALCIUM 8.4 mg/dL (8.3-10.5)
[2020-11-10 17:00] LABS: TOTAL PROTEIN 6.6 g/dL (6.2-8.1)
[2020-11-10 17:03] LABS: EOS % 5.8 % (0.0-4.0)
== END ==
LOC: LAB 16:30
PROVIDERS: Internal Medicine Gastroenterology
DX: K74.60 Unspecified cirrhosis of liver (principal); K75.81 Nonalcoholic steatohepatitis (NASH); G93.40 Encephalopathy, unspecified; E11.9 Type 2 diabetes mellitus without complications

== ENCOUNTER → 2020-12-18 | Outpatient (CLI) | payer OTHER ==
[2020-06-30 14:15] VITALS: BP 101/67
== END ==
LOC: LAB 14:45
DX: E03.4 Atrophy of thyroid (acquired) (principal); E11.9 Type 2 diabetes mellitus without complications; K90.9 Intestinal malabsorption, unspecified; K74.60 Unspecified cirrhosis of liver; I85.10 Secondary esophageal varices without bleeding; K29.50 Unspecified chronic gastritis without bleeding

== ENCOUNTER → 2021-01-09 | Outpatient (CLI) | payer OTHER ==
[2020-06-30 14:15] VITALS: BP 101/67
== END ==
LOC: LAB 15:45
DX: Z20.822 Contact with and (suspected) exposure to COVID-19 (principal)

== ENCOUNTER → 2021-02-02 | Outpatient (CLI) | payer OTHER ==
[2020-06-30 14:15] VITALS: BP 101/67
== END ==
LOC: LAB 14:05
DX: Z20.822 Contact with and (suspected) exposure to COVID-19 (principal)

== ENCOUNTER → 2021-02-13 | Outpatient (CLI) | payer OTHER ==
[2020-06-30 14:15] VITALS: BP 101/67
[2021-02-13 14:24] LABS: BASO # 0.05 (0.02-0.10); EOS # 0.19 (0.04-0.40); EOS % 3.8 % (0.0-4.0); HEMATOCRIT 33.2 % (42.0-52.0); HEMOGLOBIN 10.9 g/dL (13.5-18.0); LYMPH# 1.03 (1.50-4.00); MEAN CELL VOLUME 93 fl (78-100); MEAN CORPUSCULAR HEMOGLOBIN 31 pg (27-31); MEAN CORPUSCULAR HGB CONC 33 g/dL (33-37); MEAN PLATELET VOLUME 9.8 fl (7.4-10.4); MONO # 0.42 (0.20-0.80); NEU # 3.32 (1.40-6.50); PLATELET COUNT 103 K/mm3 (130-400); RED BLOOD COUNT 3.56 M/mm3 (4.20-5.60); RED CELL DISTRIBUTION WIDTH 14.3 % (11.5-14.5)
[2021-02-13 14:43] LABS: ALBUMIN 2.5 g/dL (3.4-4.8); POTASSIUM 4.5 mmol/L (3.5-5.1)
[2021-02-13 14:44] LABS: PROTHROMBIN TIME 12.6 SECONDS (9.0-12.0)
[2021-02-13 14:46] LABS: TOTAL PROTEIN 6.8 g/dL (6.2-8.1)
[2021-02-13 14:48] LABS: TOTAL BILIRUBIN 1.1 mg/dL (0.2-1.2)
== END ==
LOC: LAB 13:55
PROVIDERS: Physician Assistant
DX: K74.69 Other cirrhosis of liver (principal); K75.81 Nonalcoholic steatohepatitis (NASH); I85.10 Secondary esophageal varices without bleeding

== ENCOUNTER → 2021-02-19 | Outpatient (CLI) | payer OTHER ==
[2020-06-30 14:15] VITALS: BP 101/67
== END ==
LOC: RAD 15:19
DX: M19.011 Primary osteoarthritis, right shoulder (principal)

== ENCOUNTER → 2021-03-24 | Outpatient (CLI) | payer OTHER ==
[2021-03-24 15:06] LABS: BASO # 0.06 (0.02-0.10); EOS # 0.16 (0.04-0.40); HEMATOCRIT 35.5 % (42.0-52.0); HEMOGLOBIN 11.7 g/dL (13.5-18.0); LYMPH# 1.44 (1.50-4.00); MEAN CELL VOLUME 94 fl (78-100); MEAN CORPUSCULAR HEMOGLOBIN 31 pg (27-31); MEAN CORPUSCULAR HGB CONC 33 g/dL (33-37); MEAN PLATELET VOLUME 9.6 fl (7.4-10.4); MONO # 0.61 (0.20-0.80); NEU # 5.66 (1.40-6.50); PLATELET COUNT 88 K/mm3 (130-400); RED BLOOD COUNT 3.78 M/mm3 (4.20-5.60); RED CELL DISTRIBUTION WIDTH 14.2 % (11.5-14.5); WHITE BLOOD COUNT 7.9 K/mm3 (4.8-10.8)
[2021-03-24 15:12] LABS: ALBUMIN 2.8 g/dL (3.4-4.8)
[2021-03-24 15:13] LABS: POTASSIUM 4.3 mmol/L (3.5-5.1)
[2021-03-24 15:14] LABS: CALCIUM 8.2 mg/dL (8.3-10.5)
[2021-03-24 15:15] LABS: TOTAL PROTEIN 7.2 g/dL (6.2-8.1)
[2021-03-24 15:17] LABS: TOTAL BILIRUBIN 1.4 mg/dL (0.2-1.2)
[2021-03-24 15:23] LABS: MAGNESIUM 1.57 mg/dL (1.60-2.60)
== END ==
LOC: LAB 14:50
PROVIDERS: Internal Medicine
DX: F31.9 Bipolar disorder, unspecified (principal); K74.60 Unspecified cirrhosis of liver; E11.9 Type 2 diabetes mellitus without complications; K90.9 Intestinal malabsorption, unspecified

== ENCOUNTER → 2021-04-15 | Outpatient (CLI) | payer OTHER | LOC: RAD 07:13 | DX: K74.69 Other cirrhosis of liver (principal); K75.81 Nonalcoholic steatohepatitis (NASH); I85.10 Secondary esophageal varices without bleeding; Z90.49 Acquired absence of other specified parts of digestive tract ==

== ENCOUNTER → 2021-07-29 | Outpatient (CLI) | payer OTHER | LOC: RAD 10:06 | DX: M25.511 Pain in right shoulder (principal) ==

== ENCOUNTER → 2021-08-11 | Outpatient (CLI) | payer OTHER ==
[2021-08-11 13:03] LABS: ALBUMIN 2.7 g/dL (3.4-4.8); POTASSIUM 4.1 mmol/L (3.5-5.1)
[2021-08-11 13:04] LABS: CALCIUM 8.9 mg/dL (8.3-10.5)
[2021-08-11 13:06] LABS: TOTAL PROTEIN 6.9 g/dL (6.2-8.1)
[2021-08-11 13:15] LABS: BASO # 0.05 K/mm3 (0.02-0.10); EOS # 0.21 K/mm3 (0.04-0.40); EOS % 2.4 % (0.0-4.0); HEMOGLOBIN 12.3 g/dL (13.5-18.0); LYMPH# 1.06 K/mm3 (1.50-4.00); MEAN CELL VOLUME 98 fl (78-100); MEAN CORPUSCULAR HEMOGLOBIN 32 pg (27-31); MEAN CORPUSCULAR HGB CONC 32 g/dL (33-37); MEAN PLATELET VOLUME 10.7 fl (7.4-10.4); MONO # 0.72 K/mm3 (0.20-0.80); NEU # 6.77 K/mm3 (1.40-6.50); PLATELET COUNT 88 K/mm3 (130-400); RED BLOOD COUNT 3.89 M/mm3 (4.20-5.60); WHITE BLOOD COUNT 8.9 K/mm3 (4.8-10.8)
[2021-08-11 14:00] LABS: TOTAL BILIRUBIN 0.9 mg/dL (0.2-1.2)
== END ==
LOC: LAB 12:24
PROVIDERS: Internal Medicine
DX: E11.9 Type 2 diabetes mellitus without complications (principal); I48.91 Unspecified atrial fibrillation; E03.4 Atrophy of thyroid (acquired); K90.9 Intestinal malabsorption, unspecified

== ENCOUNTER → 2021-08-13 | Outpatient (CLI) | payer OTHER ==
[2021-08-13 11:07] LABS: URINE APPEARANCE HAZY; URINE COLOR YELLOW; URINE PROTEIN(semi-quant) NEGATIVE (NEGATIVE)
[2021-08-13 11:08] LABS: URINE BILIRUBIN NEGATIVE (NEGATIVE); URINE BLOOD TRACE (NEGATIVE); URINE KETONE NEGATIVE (NEGATIVE); URINE LEUKOCYTE ESTERASE NEGATIVE (NEGATIVE); URINE NITRATE NEGATIVE (NEGATIVE); URINE UROBILINOGEN NORMAL (NORMAL)
== END ==
LOC: LAB 10:29
PROVIDERS: Internal Medicine
DX: E11.9 Type 2 diabetes mellitus without complications (principal); I48.91 Unspecified atrial fibrillation; E03.4 Atrophy of thyroid (acquired); K90.9 Intestinal malabsorption, unspecified

== ENCOUNTER 2021-09-26 15:33 | Emergency (ER) | payer OTHER ==
[~2021-09-26] VITALS: Ht 167.6 cm; Wt 81.7 kg
[~2021-09-26 15:33] MED LIST changes: -LATUDA120 MG PO
[2021-09-26 16:37] LABS: BASO # 0.05 K/mm3 (0.02-0.10); EOS # 0.09 K/mm3 (0.04-0.40); EOS % 1.5 % (0.0-4.0); HEMATOCRIT 32.6 % (42.0-52.0); HEMOGLOBIN 11.4 g/dL (13.5-18.0); LYMPH# 0.77 K/mm3 (1.50-4.00); MEAN CELL VOLUME 94 fl (78-100); MEAN CORPUSCULAR HEMOGLOBIN 33 pg (27-31); MEAN CORPUSCULAR HGB CONC 35 g/dL (33-37); MEAN PLATELET VOLUME 10.1 fl (7.4-10.4); MONO # 0.57 K/mm3 (0.20-0.80); NEU # 4.55 K/mm3 (1.40-6.50); PLATELET COUNT 96 K/mm3 (130-400); RED BLOOD COUNT 3.48 M/mm3 (4.20-5.60); RED CELL DISTRIBUTION WIDTH 14.2 % (11.5-14.5)
[2021-09-26 16:46] LABS: ALBUMIN 2.3 g/dL (3.4-4.8); POTASSIUM 3.8 mmol/L (3.5-5.1)
[2021-09-26 16:49] LABS: PROTHROMBIN TIME 12.4 SECONDS (9.0-12.0); TOTAL PROTEIN 6.1 g/dL (6.2-8.1)
[2021-09-26 16:50] LABS: TOTAL BILIRUBIN 1.8 mg/dL (0.2-1.2)
[2021-09-26 17:00] LABS: URINE APPEARANCE CLEAR; URINE BILIRUBIN NEGATIVE (NEGATIVE); URINE BLOOD NEGATIVE (NEGATIVE); URINE COLOR AMBER; URINE KETONE NEGATIVE (NEGATIVE); URINE LEUKOCYTE ESTERASE NEGATIVE (NEGATIVE); URINE NITRATE NEGATIVE (NEGATIVE); URINE PROTEIN(semi-quant) NEGATIVE (NEGATIVE); URINE UROBILINOGEN NORMAL (NORMAL); URINE WBC 0-1 /hpf (0-3)
[2021-09-26] MEDS ORDERED: MAGOX 400241.3 MG PO (17:48)
[2021-09-26] MEDS ORDERED: FUROSEMIDE40 MG PO (17:49)
[2021-09-26] MEDS ORDERED: SPIRONOLACTONE100 MG PO (17:49)
[2021-09-26] MEDS ORDERED: VITAMIN D21250 MCG PO (17:50)
[2021-09-26] MEDS ORDERED: VITAMIN D3125 MC1 PO (17:50)
[2021-09-26] MEDS ORDERED: XIFAXAN550 MG PO (17:51)
[2021-09-26 20:05] VITALS: BP 110/68
== END 2021-09-26 20:07 | disposition home or self-care (01) ==
LOC: ED 15:33
PROVIDERS: Family Medicine
DX: K74.60 Unspecified cirrhosis of liver (principal); E11.9 Type 2 diabetes mellitus without complications; F31.9 Bipolar disorder, unspecified; E03.9 Hypothyroidism, unspecified; Z90.49 Acquired absence of other specified parts of digestive tract; Z79.890 Hormone replacement therapy; Z79.899 Other long term (current) drug therapy
CPT/HCPCS: J1815

== ENCOUNTER → 2021-12-10 | Outpatient (CLI) | payer OTHER ==
[~2021-12-10] MED LIST changes: +FUROSEMIDE40 MG PO; +MAGOX 400241.3 MG PO; +SPIRONOLACTONE100 MG PO; +VITAMIN D21250 MCG PO; +VITAMIN D3125 MC1 PO; +XIFAXAN550 MG PO
[2021-12-10 11:46] LABS: HEMATOCRIT 35.2 % (42.0-52.0); HEMOGLOBIN 11.9 g/dL (13.5-18.0); MEAN CELL VOLUME 94 fl (78-100); MEAN CORPUSCULAR HEMOGLOBIN 32 pg (27-31); MEAN CORPUSCULAR HGB CONC 34 g/dL (33-37); MEAN PLATELET VOLUME 10.2 fl (7.4-10.4); PLATELET COUNT 87 K/mm3 (130-400); RED BLOOD COUNT 3.76 M/mm3 (4.20-5.60); RED CELL DISTRIBUTION WIDTH 13.7 % (11.5-14.5); WHITE BLOOD COUNT 7.4 K/mm3 (4.8-10.8)
[2021-12-10 12:10] LABS: ALBUMIN 2.7 g/dL (3.4-4.8); POTASSIUM 3.7 mmol/L (3.5-5.1)
[2021-12-10 12:11] LABS: CALCIUM 8.6 mg/dL (8.3-10.5)
[2021-12-10 12:12] LABS: TOTAL PROTEIN 6.9 g/dL (6.2-8.1)
[2021-12-10 12:14] LABS: TOTAL BILIRUBIN 1.1 mg/dL (0.2-1.2)
[2021-12-10 13:33] LABS: HYPOCHROMIA 1+; LYMPHOCYTE 12 % (20-51); MONOCYTE 6 % (3-10); NEUTROPHILS 82 % (42-75)
== END ==
LOC: LAB 11:28
PROVIDERS: Internal Medicine
DX: K72.90 Hepatic failure, unspecified without coma (principal); E11.9 Type 2 diabetes mellitus without complications; I48.91 Unspecified atrial fibrillation; E03.4 Atrophy of thyroid (acquired); F31.9 Bipolar disorder, unspecified; K74.60 Unspecified cirrhosis of liver; E78.2 Mixed hyperlipidemia; E55.9 Vitamin D deficiency, unspecified; M75.21 Bicipital tendinitis, right shoulder; K90.9 Intestinal malabsorption, unspecified; I85.00 Esophageal varices without bleeding

== ENCOUNTER 2022-01-21 14:46 | Emergency (ER) | payer OTHER ==
[2022-01-21 16:04] LABS: BASO # 0.07 K/mm3 (0.02-0.10); EOS # 0.12 K/mm3 (0.04-0.40); EOS % 1.9 % (0.0-4.0); HEMATOCRIT 36.5 % (42.0-52.0); HEMOGLOBIN 12.1 g/dL (13.5-18.0); LYMPH# 1.26 K/mm3 (1.50-4.00); MEAN CELL VOLUME 97 fl (78-100); MEAN CORPUSCULAR HEMOGLOBIN 32 pg (27-31); MEAN CORPUSCULAR HGB CONC 33 g/dL (33-37); MEAN PLATELET VOLUME 10.5 fl (7.4-10.4); MONO # 0.56 K/mm3 (0.20-0.80); NEU # 4.34 K/mm3 (1.40-6.50); PLATELET COUNT 116 K/mm3 (130-400); RED BLOOD COUNT 3.78 M/mm3 (4.20-5.60); WHITE BLOOD COUNT 6.4 K/mm3 (4.8-10.8)
[2022-01-21 16:18] LABS: ALBUMIN 2.7 g/dL (3.4-4.8)
[2022-01-21 16:19] LABS: CALCIUM 8.7 mg/dL (8.3-10.5)
[2022-01-21 16:20] LABS: TOTAL PROTEIN 6.7 g/dL (6.2-8.1)
[2022-01-21 16:22] LABS: TOTAL BILIRUBIN 1.5 mg/dL (0.2-1.2)
[2022-01-21 17:23] VITALS: BP 134/86
== END 2022-01-21 16:46 | disposition home or self-care (01) ==
LOC: ED 14:46
PROVIDERS: Family Medicine
DX: R10.11 Right upper quadrant pain (principal); R10.31 Right lower quadrant pain; E80.7 Disorder of bilirubin metabolism, unspecified; Z90.49 Acquired absence of other specified parts of digestive tract

== ENCOUNTER → 2022-02-19 | Outpatient (CLI) | payer OTHER ==
[2022-02-19 15:39] LABS: BASO # 0.05 K/mm3 (0.02-0.10); EOS # 0.17 K/mm3 (0.04-0.40); EOS % 3.5 % (0.0-4.0); HEMATOCRIT 34.1 % (42.0-52.0); HEMOGLOBIN 11.1 g/dL (13.5-18.0); LYMPH# 1.03 K/mm3 (1.50-4.00); MEAN CELL VOLUME 98 fl (78-100); MEAN CORPUSCULAR HEMOGLOBIN 32 pg (27-31); MEAN CORPUSCULAR HGB CONC 33 g/dL (33-37); MEAN PLATELET VOLUME 9.7 fl (7.4-10.4); MONO # 0.46 K/mm3 (0.20-0.80); NEU # 3.18 K/mm3 (1.40-6.50); PLATELET COUNT 90 K/mm3 (130-400); RED BLOOD COUNT 3.49 M/mm3 (4.20-5.60); RED CELL DISTRIBUTION WIDTH 13.7 % (11.5-14.5); WHITE BLOOD COUNT 4.9 K/mm3 (4.8-10.8)
[2022-02-19 15:49] LABS: ALBUMIN 2.6 g/dL (3.4-4.8); POTASSIUM 4.5 mmol/L (3.5-5.1)
[2022-02-19 15:51] LABS: CALCIUM 8.5 mg/dL (8.3-10.5)
[2022-02-19 15:52] LABS: TOTAL PROTEIN 6.8 g/dL (6.2-8.1)
[2022-02-19 18:52] LABS: TOTAL BILIRUBIN 1.2 mg/dL (0.2-1.2)
== END ==
LOC: LAB 15:21
PROVIDERS: Internal Medicine
DX: K72.90 Hepatic failure, unspecified without coma (principal); E11.9 Type 2 diabetes mellitus without complications; I48.91 Unspecified atrial fibrillation; E03.4 Atrophy of thyroid (acquired); F31.9 Bipolar disorder, unspecified; K74.60 Unspecified cirrhosis of liver; E78.2 Mixed hyperlipidemia; E55.9 Vitamin D deficiency, unspecified; M75.21 Bicipital tendinitis, right shoulder; K90.9 Intestinal malabsorption, unspecified; I85.00 Esophageal varices without bleeding

== ENCOUNTER → 2022-05-21 | Outpatient (CLI) | payer OTHER ==
[2022-05-21 16:59] LABS: BASO # 0.06 K/mm3 (0.02-0.10); EOS # 0.16 K/mm3 (0.04-0.40); EOS % 2.6 % (0.0-4.0); HEMATOCRIT 34.1 % (42.0-52.0); HEMOGLOBIN 11.5 g/dL (13.5-18.0); LYMPH# 1.29 K/mm3 (1.50-4.00); MEAN CELL VOLUME 94 fl (78-100); MEAN CORPUSCULAR HEMOGLOBIN 32 pg (27-31); MEAN CORPUSCULAR HGB CONC 34 g/dL (33-37); MEAN PLATELET VOLUME 9.6 fl (7.4-10.4); MONO # 0.55 K/mm3 (0.20-0.80); NEU # 4.18 K/mm3 (1.40-6.50); PLATELET COUNT 104 K/mm3 (130-400); RED BLOOD COUNT 3.63 M/mm3 (4.20-5.60); RED CELL DISTRIBUTION WIDTH 13.8 % (11.5-14.5); WHITE BLOOD COUNT 6.3 K/mm3 (4.8-10.8)
[2022-05-21 17:15] LABS: ALBUMIN 2.6 g/dL (3.4-4.8)
[2022-05-21 17:16] LABS: CALCIUM 8.9 mg/dL (8.3-10.5)
[2022-05-21 17:17] LABS: TOTAL PROTEIN 7.1 g/dL (6.2-8.1)
[2022-05-21 17:19] LABS: TOTAL BILIRUBIN 1.8 mg/dL (0.2-1.2)
[2022-05-21 17:21] LABS: PARTIAL THROMBOPLASTIN TIME 28.7 SECONDS (21.0-32.0); PROTHROMBIN TIME 13.1 SECONDS (9.0-12.0)
[2022-05-21 18:41] LABS: ERYTHROCYTE SEDIMENTATION RATE 50 mm/hr (0-20)
== END ==
LOC: LAB 16:34
PROVIDERS: Internal Medicine
DX: I48.91 Unspecified atrial fibrillation (principal); F31.9 Bipolar disorder, unspecified; E11.9 Type 2 diabetes mellitus without complications

== ENCOUNTER 2022-06-11 16:03 | Emergency (ER) | payer OTHER ==
[~2022-06-11] VITALS: Ht 167.6 cm; Wt 81.8 kg
[2022-06-11 17:33] LABS: URINE WBC 0 /hpf (0-3)
[2022-06-11 18:04] LABS: BASO # 0.04 K/mm3 (0.02-0.10); EOS # 0.12 K/mm3 (0.04-0.40); EOS % 2.2 % (0.0-4.0); HEMATOCRIT 32.5 % (42.0-52.0); LYMPH# 0.91 K/mm3 (1.50-4.00); MEAN CELL VOLUME 95 fl (78-100); MEAN CORPUSCULAR HEMOGLOBIN 32 pg (27-31); MEAN CORPUSCULAR HGB CONC 34 g/dL (33-37); MEAN PLATELET VOLUME 10.5 fl (7.4-10.4); MONO # 0.46 K/mm3 (0.20-0.80); NEU # 4.02 K/mm3 (1.40-6.50); RED BLOOD COUNT 3.43 M/mm3 (4.20-5.60); RED CELL DISTRIBUTION WIDTH 13.8 % (11.5-14.5); WHITE BLOOD COUNT 5.6 K/mm3 (4.8-10.8)
[2022-06-11 18:16] LABS: ALBUMIN 2.5 g/dL (3.4-4.8); POTASSIUM 3.8 mmol/L (3.5-5.1)
[2022-06-11 18:18] LABS: CALCIUM 8.3 mg/dL (8.3-10.5)
[2022-06-11 18:19] LABS: TOTAL PROTEIN 6.6 g/dL (6.2-8.1)
[2022-06-11 18:21] LABS: TOTAL BILIRUBIN 1.9 mg/dL (0.2-1.2)
[2022-06-11 18:28] LABS: PLATELET COUNT 85 K/mm3 (130-400)
[2022-06-11] MEDS ORDERED: CARVEDILOL3.125 MG PO (18:36)
[2022-06-11] MEDS ORDERED: HYDROXYZINE HCL25 M1 PO (18:38)
[2022-06-11] MEDS ORDERED: PROTONIX20 M1 PO (18:39)
[2022-06-11 18:41] LABS: URINE COLOR DARK YELLOW
[2022-06-11] MEDS ORDERED: DESYREL50 MG PO (18:41)
[2022-06-11 18:42] LABS: URINE APPEARANCE CLEAR; URINE BILIRUBIN NEGATIVE (NEGATIVE); URINE BLOOD 50 ery/uL (NEGATIVE); URINE KETONE TR (NEGATIVE); URINE LEUKOCYTE ESTERASE NEGATIVE (NEGATIVE); URINE MUCUS PRESENT (NOT PRESENT); URINE NITRATE NEGATIVE (NEGATIVE); URINE PROTEIN(semi-quant) TRACE (NEGATIVE); URINE UROBILINOGEN 1 mg/dL (NORMAL)
[2022-06-11 19:30] VITALS: BP 137/78
== END 2022-06-11 19:32 | disposition home or self-care (01) ==
LOC: ED 16:03
PROVIDERS: Nurse Practitioner Family
DX: Z04.3 Encounter for examination and observation following other accident (principal); R73.9 Hyperglycemia, unspecified

== ENCOUNTER 2022-06-29 16:40 | Emergency (ER) | payer OTHER ==
[~2022-06-29] VITALS: Ht 172.7 cm; Wt 84.9 kg
[~2022-06-29 16:40] MED LIST changes: +CARVEDILOL3.125 MG PO; +DESYREL50 MG PO; +PROTONIX20 M1 PO
[2022-06-29] MEDS ORDERED: HYDROXYZINE HCL25 M1 PO (17:16)
[2022-06-29 17:34] VITALS: BP 122/72
== END 2022-06-29 17:35 | disposition home or self-care (01) ==
LOC: ED 16:40
DX: F41.9 Anxiety disorder, unspecified (principal)

== ENCOUNTER 2022-09-13 11:28 | Emergency (ER) | payer OTHER ==
[~2022-09-13 11:28] MED LIST changes: +KRISTALOSE10 GM/PACK PO; +METFORMIN ER500 MG PO
[2022-09-13 12:39] LABS: BASO # 0.04 K/mm3 (0.02-0.10); EOS # 0.11 K/mm3 (0.04-0.40); EOS % 1.9 % (0.0-4.0); HEMATOCRIT 31.5 % (42.0-52.0); MEAN CELL VOLUME 94 fl (78-100); MEAN CORPUSCULAR HEMOGLOBIN 33 pg (27-31); MEAN CORPUSCULAR HGB CONC 35 g/dL (33-37); MEAN PLATELET VOLUME 10.5 fl (7.4-10.4); MONO # 0.69 K/mm3 (0.20-0.80); NEU # 3.89 K/mm3 (1.40-6.50); PLATELET COUNT 83 K/mm3 (130-400); RED BLOOD COUNT 3.37 M/mm3 (4.20-5.60); WHITE BLOOD COUNT 5.9 K/mm3 (4.8-10.8)
[2022-09-13 12:50] LABS: ALBUMIN 2.5 g/dL (3.4-4.8); SODIUM 131 mmol/L (136-145)
[2022-09-13 12:51] LABS: CALCIUM 9.3 mg/dL (8.3-10.5)
[2022-09-13 12:52] LABS: GLUCOSE 222 mg/dL (75-110); TOTAL PROTEIN 6.7 g/dL (6.2-8.1)
[2022-09-13 12:53] LABS: CARBON DIOXIDE 26 mmol/L (23-31)
[2022-09-13 12:54] LABS: PARTIAL THROMBOPLASTIN TIME 32.1 SECONDS (21.0-32.0); PROTHROMBIN TIME 13.3 SECONDS (9.0-12.0); TOTAL BILIRUBIN 1.1 mg/dL (0.2-1.2)
[2022-09-13 12:58] LABS: AST-SGOT 26 U/L (5-34)
[2022-09-13 12:59] LABS: ALT/SGPT 18 U/L (0-55); LIPASE 20 U/L (8-78)
[2022-09-13 13:00] LABS: STREP SCREEN NEGATIVE (NEGATIVE)
[2022-09-13 13:17] LABS: TROPONIN-I < 0.030 ng/mL (<0.030)
[2022-09-13 15:06] LABS: URINE APPEARANCE HAZY; URINE BILIRUBIN NEGATIVE (NEGATIVE); URINE BLOOD 50 ery/uL (NEGATIVE); URINE COLOR YELLOW; URINE GLUCOSE NEGATIVE (NEGATIVE); URINE KETONE NEGATIVE (NEGATIVE); URINE LEUKOCYTE ESTERASE 2+ (NEGATIVE); URINE NITRATE NEGATIVE (NEGATIVE); URINE PROTEIN(semi-quant) TRACE (NEGATIVE); URINE UROBILINOGEN NORMAL (NORMAL); URINE WBC >50 /hpf (0-3)
[2022-09-13] MEDS ORDERED: CEPHALEXIN500 M1 PO (15:15)
[2022-09-13 16:00] VITALS: BP 113/76
== END 2022-09-13 15:39 | disposition home or self-care (01) ==
LOC: ED 11:28
PROVIDERS: Nurse Practitioner
DX: N39.0 Urinary tract infection, site not specified (principal); T43.595A Adverse effect of other antipsychotics and neuroleptics, initial encounter; Z28.310 Unvaccinated for COVID-19; Z20.822 Contact with and (suspected) exposure to COVID-19; Z88.8 Allergy status to other drugs, medicaments and biological substances
CPT/HCPCS: J0696; J7030; Q9967